=== PATIENT | male | born 1985 | race African-American/Black ===

== ENCOUNTER 2016-08-09 17:57 | Emergency (ER) | payer MEDICAID ==
[~2016-08-09] VITALS: Ht 172.7 cm; Wt 69.0 kg
[2016-08-09] MEDS ORDERED: LEVETIRACETAM 1,000 MG in SODIUM CHLORIDE 0.9% 100 ML IV ONE (21:15)
[2016-08-09 21:31] LABS: HEMATOCRIT. 39.2 % (42.0-52.0); HEMOGLOBIN. 12.7 g/dL (14.0-18.0); MEAN CORPUSCULAR HEMOGLOBIN 27.5 pg (28.0-32.0); MEAN CORPUSCULAR HGB CONC 32.5 g/dL (31.0-37.0); MEAN CORPUSCULAR VOLUME 84.6 fL (80.0-94.0); MEAN PLATELET VOLUME 7.3 fl (7.4-10.4); PLATELET 274 x1000/uL (130-400); RED BLOOD CELL COUNT 4.63 mill/uL (4.7-6.1); RED CELL DISTRIBUTION WIDTH 13.2 % (11.6-14.6); WHITE BLOOD COUNT 6.9 x1000/uL (4.5-11.0)
[2016-08-09 21:32] LABS: DIFFERENTIAL COMMENT 1
[2016-08-09 21:34] LABS: CHLORIDE 96 mEq/L (98-107)
[2016-08-09 21:44] LABS: ALANINE AMINOTRANSFERASE 34 IU/L (13-61); ALBUMIN 3.9 g/dL (3.4-5.0); ANION GAP 16; CALCIUM 9.1 mg/dL (8.5-10.1); CARBON DIOXIDE 27 mEq/L (21-32); INDEX HEMOLYSI 1 (1-3); INDEX ICTERIC 1 (1-4); INDEX LIPEMIC 1 (1-3); UREA NITROGEN BLOOD 27 mg/dL (7-21); eGFR > 60 mL/min (>60)
[2016-08-09 21:51] LABS: ATYPICAL LYMPHOCYTES 3; PLATELET ESTIMATE NORMAL
[2016-08-09] MEDS ORDERED: SODIUM CHLORIDE 0.9% 1,000 ML IV ONE (22:22)
[2016-08-09 22:50] VITALS: BP 108/53
== END 2016-08-10 01:25 | disposition home or self-care (01) ==
LOC: ER 18:07
DX: G40.909 Epilepsy, unspecified, not intractable, without status epilepticus (principal); F17.210 Nicotine dependence, cigarettes, uncomplicated; Z71.6 Tobacco abuse counseling; Z79.899 Other long term (current) drug therapy; F12.90 Cannabis use, unspecified, uncomplicated
CPT/HCPCS: 36415; 80053; 85025; 96365; 96366; 99285; 99406; J1953; J7030; Z7610; J7050

== ENCOUNTER 2016-12-05 12:16 | Emergency (ER) | payer MEDICAID ==
[~2016-12-05] VITALS: Ht 177.8 cm; Wt 75.0 kg
[2016-12-05] MEDS ORDERED: LEVETIRACETAM 500MG/5ML CUP PO ONE (13:00)
[2016-12-05] MEDS ORDERED: LEVETIRACETAM 500MG PREMIX 100 ML IV ONE ×2 (13:00)
[2016-12-05] MEDS ORDERED: LEVETIRACETAM 500MG TABLET PO ONE (13:29)
[2016-12-05 15:17] VITALS: BP 107/62
== END 2016-12-05 18:11 | disposition home or self-care (01) ==
LOC: ER 12:28
DX: G40.909 Epilepsy, unspecified, not intractable, without status epilepticus (principal); F12.10 Cannabis abuse, uncomplicated; Z91.14 Patient's other noncompliance with medication regimen; Z20.6 Contact with and (suspected) exposure to human immunodeficiency virus [HIV]; Z98.890 Other specified postprocedural states
CPT/HCPCS: 96365; 99284; J1953; Z7610

== ENCOUNTER 2017-03-03 10:33 | Emergency (ER) | payer MEDICAID ==
[~2017-03-03] VITALS: Ht 177.8 cm; Wt 80.0 kg
[2017-03-03] MEDS ORDERED: SODIUM CHLORIDE 0.9% 1,000 ML IV ONE (10:44)
[2017-03-03] MEDS ORDERED: LEVETIRACETAM 500MG PREMIX 100 ML IV ONE (10:45)
[2017-03-03 11:59] LABS: HEMATOCRIT. 41.5 % (42.0-52.0); HEMOGLOBIN. 13.6 g/dL (14.0-18.0); MEAN CORPUSCULAR HEMOGLOBIN 28.6 pg (28.0-32.0); MEAN CORPUSCULAR VOLUME 87.1 fL (80.0-94.0); MEAN PLATELET VOLUME 7.4 fl (7.4-10.4); PLATELET 292 x1000/uL (130-400); RED BLOOD CELL COUNT 4.76 mill/uL (4.7-6.1); RED CELL DISTRIBUTION WIDTH 14.2 % (11.6-14.6)
[2017-03-03 12:09] LABS: CARBON DIOXIDE 24 mEq/L (21-32); CHLORIDE 103 mEq/L (98-107); ETHANOL BLOOD < 10 mg/dL
[2017-03-03 12:37] LABS: INR 1.1; PARTIAL THROMBOPLASTIN TIME 25.7 sec (23.4-31.0); PROTHROMBIN TIME 11.9 sec (9.4-11.6)
[2017-03-03 13:00] LABS: PLATELET ESTIMATE NORMAL
[2017-03-03 14:47] VITALS: BP 110/78
== END 2017-03-03 15:40 | disposition home or self-care (01) ==
LOC: ER 10:42
DX: S02.91XA Unspecified fracture of skull, initial encounter for closed fracture (principal); R56.9 Unspecified convulsions; I95.9 Hypotension, unspecified; E16.2 Hypoglycemia, unspecified; F12.10 Cannabis abuse, uncomplicated; X58.XXXA Exposure to other specified factors, initial encounter; Y93.89 Activity, other specified; Y92.89 Other specified places as the place of occurrence of the external cause; Y99.8 Other external cause status
CPT/HCPCS: 36415; 70450; 80048; 85025; 85610; 85730; 96361; 96365; 99285; G0482; J1953; J7030; Z7610

== ENCOUNTER 2017-04-12 08:50 | Emergency (ER) | payer MEDICAID ==
[~2017-04-12] VITALS: Ht 180.3 cm; Wt 69.0 kg
[2017-04-12] MEDS ORDERED: KEPP500 PO (08:56)
[2017-04-12] MEDS ORDERED: LORAZEPAM 2MG/ML CPJ IV PRN (09:15)
[2017-04-12 09:36] LABS: HEMATOCRIT. 37.8 % (42.0-52.0); HEMOGLOBIN. 12.5 g/dL (14.0-18.0); MEAN CORPUSCULAR VOLUME 87.8 fL (80.0-94.0); MEAN PLATELET VOLUME 7.4 fl (7.4-10.4); PLATELET 243 x1000/uL (130-400); RED BLOOD CELL COUNT 4.31 mill/uL (4.7-6.1); RED CELL DISTRIBUTION WIDTH 14.7 % (11.6-14.6)
[2017-04-12 09:39] LABS: CHLORIDE 101 mEq/L (98-107)
[2017-04-12 09:47] LABS: CARBON DIOXIDE 21 mEq/L (21-32); ETHANOL BLOOD < 10 mg/dL
[2017-04-12 11:03] VITALS: BP 123/76
[2017-04-12 12:32] LABS: PLATELET ESTIMATE NORMAL
== END 2017-04-12 11:19 | disposition home or self-care (01) ==
LOC: ER 09:00
DX: R56.9 Unspecified convulsions (principal); F12.10 Cannabis abuse, uncomplicated
CPT/HCPCS: 36415; 80053; 85025; 99284; G0482; Z7610

== ENCOUNTER 2017-04-30 12:41 | Emergency (ER) | payer MEDICAID ==
[~2017-04-30] VITALS: Ht 180.3 cm; Wt 75.0 kg
[~2017-04-30 12:41] MED LIST: KEPP500 PO
[2017-04-30 14:55] VITALS: BP 115/67
== END 2017-04-30 15:15 | disposition home or self-care (01) ==
LOC: ER 14:25
DX: G40.909 Epilepsy, unspecified, not intractable, without status epilepticus (principal); I67.1 Cerebral aneurysm, nonruptured; F12.90 Cannabis use, unspecified, uncomplicated; Z21 Asymptomatic human immunodeficiency virus [HIV] infection status
CPT/HCPCS: 82962; 99283; Z7610

== ENCOUNTER 2017-04-30 17:14 | Emergency (ER) | payer MEDICAID ==
[~2017-04-30] VITALS: Ht 177.8 cm; Wt 75.0 kg
[2017-04-30] MEDS ORDERED: SODIUM CHLORIDE 0.9% 1,000 ML IV ONE (17:25)
[2017-04-30] MEDS ORDERED: LEVETIRACETAM 1,000 MG in SODIUM CHLORIDE 0.9% 100 ML IV ONE (17:30)
[2017-04-30] MEDS ORDERED: LORAZEPAM 2MG/ML CPJ ONE (17:48)
[2017-04-30] MEDS ORDERED: LEVETIRACETAM 1000MG PREMIX 100 ML IV NR (18:00)
[2017-04-30 18:01] LABS: BASOPHILS % 0.4 % (0.0-2.0); EOSINOPHILS % 0.7 % (0.0-5.0); HEMATOCRIT. 42.3 % (42.0-52.0); HEMOGLOBIN. 12.7 g/dL (14.0-18.0); LYMPHOCYTES % 32.3 % (20.0-50.0); MEAN CORPUSCULAR HEMOGLOBIN 27.5 pg (28.0-32.0); MEAN CORPUSCULAR VOLUME 91.5 fL (80.0-94.0); MEAN PLATELET VOLUME 7.5 fl (7.4-10.4); MONOCYTES % 8.4 % (2.0-8.0); NEUTROPHILS % 58.2 % (40.0-76.0); PLATELET 355 x1000/uL (130-400); RED BLOOD CELL COUNT 4.62 mill/uL (4.7-6.1); RED CELL DISTRIBUTION WIDTH 14.4 % (11.6-14.6)
[2017-04-30 18:04] LABS: CHLORIDE 99 mEq/L (98-107)
[2017-04-30 18:09] LABS: CARBON DIOXIDE 11 mEq/L (21-32); ETHANOL BLOOD < 10 mg/dL
[2017-04-30] MEDS ORDERED: LORAZEPAM 2MG/ML CPJ IV ONE (18:45)
[2017-05-01 03:25] VITALS: BP 108/71
== END 2017-05-01 03:40 | disposition short-term general hospital (02) ==
LOC: ER 17:28 → CANBEDREQ 05-01 01:31 → ER 05-01 03:40
DX: G40.909 Epilepsy, unspecified, not intractable, without status epilepticus (principal); S02.82XA Fracture of other specified skull and facial bones, left side, initial encounter for closed fracture; S00.83XA Contusion of other part of head, initial encounter; I67.1 Cerebral aneurysm, nonruptured; R00.0 Tachycardia, unspecified; Z98.890 Other specified postprocedural states; F12.10 Cannabis abuse, uncomplicated; Z21 Asymptomatic human immunodeficiency virus [HIV] infection status; X58.XXXA Exposure to other specified factors, initial encounter; Y93.89 Activity, other specified; Y92.89 Other specified places as the place of occurrence of the external cause
CPT/HCPCS: 36415; 70450; 80053; 82542; 85025; 93005; 96361; 96365; 96375; 99291; G0482; J1953; J2060; Z7610; J7030; J7050

== ENCOUNTER 2018-09-10 09:13 | Emergency (ER) | payer MEDICAID ==
[~2018-09-10] VITALS: Ht 177.8 cm; Wt 80.0 kg
[2018-09-10 10:07] LABS: BASOPHILS % 0.2 % (0.0-2.0); EOSINOPHILS % 1.5 % (0.0-5.0); HEMATOCRIT. 36.2 % (42.0-52.0); HEMOGLOBIN. 11.6 g/dL (14.0-18.0); LYMPHOCYTES % 10.4 % (20.0-50.0); MEAN CORPUSCULAR HEMOGLOBIN 28.3 pg (28.0-32.0); MEAN CORPUSCULAR VOLUME 88.1 fL (80.0-94.0); MEAN PLATELET VOLUME 7.8 fl (7.4-10.4); MONOCYTES % 13.5 % (2.0-8.0); NEUTROPHILS % 74.4 % (40.0-76.0); PLATELET 164 x1000/uL (130-400); RED BLOOD CELL COUNT 4.11 mill/uL (4.7-6.1)
[2018-09-10 10:10] LABS: CHLORIDE 108 mEq/L (98-107)
[2018-09-10 10:15] LABS: ETHANOL BLOOD < 10 mg/dL
[2018-09-10 11:48] LABS: CLARITY URINE CLEAR (CLEAR); COLOR URINE YELLOW (YELLOW); KETONES URINE NEGATIVE (NEGATIVE); LEUKOCYTE ESTERASE URINE NEGATIVE (NEGATIVE); NITRITE URINE NEGATIVE (NEGATIVE); OCCULT BLOOD URINE NEGATIVE (NEGATIVE); PH URINE 6.5 (4.5-8.0); PROTEIN URINE NEGATIVE (NEGATIVE); SPECIFIC GRAVITY URINE 1.023 (1.005-1.030); UROBILINOGEN URINE 0.2 E.U./dL (0.2-1.0)
[2018-09-10 12:04] LABS: *AMPHETAMINES SCREEN URINE PRESUMTIVE POSITIVE (NEGATIVE); *BARBITURATES SCREEN URINE NEGATIVE (NEGATIVE); *BENZODIAZEPINES SCREEN URINE NEGATIVE (NEGATIVE); *COCAINE SCREEN URINE NEGATIVE (NEGATIVE); METHADONE URINE SCREEN NEGATIVE (NEGATIVE); OPIATES URINE SCREEN NEGATIVE (NEGATIVE)
[2018-09-10 12:05] LABS: CANNABINOID URINE SCREEN PRESUMTIVE POSITIVE (NEGATIVE); PHENCYCLIDINE URINE SCREEN NEGATIVE (NEGATIVE)
[2018-09-10] MEDS ORDERED: IOHEXOL-350 100 ML BOTTLE ONE (12:18)
[2018-09-10] MEDS ORDERED: HYDROCODONE/ACETAMINOPHEN 5/325MG TABLET PO ONE (13:00)
[2018-09-11 11:13] VITALS: BP 108/59
== END 2018-09-11 11:24 | disposition home or self-care (01) ==
LOC: ER 09:13
DX: R56.9 Unspecified convulsions (principal); F12.10 Cannabis abuse, uncomplicated
CPT/HCPCS: 36415; 70450; 70496; 71045; 80053; 80305; 80320; 81003; 85025; 99284; Q9967; G0480